=== PATIENT | female | born 1970 | race Asian ===

== ENCOUNTER 2024-09-24 09:14 | Outpatient (AMB) | payer OTHER, SELFPAY ==
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
--- OUTSIDE RECORDS SUMMARY | 2024-09-24 09:19 | XMS_ITS | Data Portability ---
Author Organization [facility] [employer] (acquired by [employer]), Fancy Address [address] [place] [address] [place] [address] Care Team Providers Care Store Director Name Role Phone ZEV RODRIGUEZ Referring Provider Unavailable ZEV RODRIGUEZ Primary Care Provider Assessment Encounter Date Assessment Date Assessment LastModified by Organization Details LastModified Time 08/14/2020 08/14/2020 IMPRESSION: Migraine, with a tendency for perimenstrual predominance and a tendency for extended continuous migraine after stress such as occurred June 2018 after exhausting international business trip. Neurological exam is normal. Headache correlates with screening time. We discuss being more strict with intermixing relaxation away from the screen with screening time versus improving migraine preventative medication. She would love to do the former but does not see how it can be feasible with her job constraints as they are. We decide on the latter. Amitriptyline is not causing side effects and we decide on a slow increase. Medications are reviewed: Atorvastatin 40 mg daily, aspirin 81 mg daily, pantoprazole 40 mg daily, amitriptyline 25 mg nightly, magnesium, riboflavin. She has not yet brought in magnesium and riboflavin doses but will at follow-up PLAN: Angelia Loco August 14, 2020 Migraine prevention: Increase Amitriptyline 25 mg tablets according to these instructions: 1.5 tablets every evening, 2 weeks 2 tablets every evening 2 weeks We agree that I will take over management of this medication. Amitriptyline may cause drowsiness, bladder hesitation, and dry mouth, and increased appetite. If side effects are mild, wait a few days. If side effects are not mild, or if they do not go away after a few days, return to the previous dose at which you did not have side effects. (If you have dry mouth: Try sugarless candy for dry mouth. Alternatively, Biotene, once every morning, mcer-ocv-qumayqk liquid may also help dry mouth) If symptoms resolve at a particular dose, there is no need to increase the dose further. CONTINUE riboflavin CONTINUE magnesium Follow-up in 2 months. Please have your riboflavin and magnesium bottles available at follow-up so I can know you re exact doses. raji Not available 08/14/2020 09:23:59 Plan of Treatment Reminders Order Date Submit Date Provider Last Modified By Organization Details Last Modified Time Details Appointments None recorded. Lab None recorded. Referral None recorded. Procedures None recorded. Surgeries None recorded. Imaging None recorded. Medication Orders amitriptyli ne 25 mg tablet 2020 021 [facility][id number], [address] [facility], [place], [address], 09:25:20 Patient TargetsNo targets recorded. Patient InstructionsNo instructions recorded. Reason for Referral None Reported. Medical Equipment None Reported. Medications Name Sig Start Date Stop Date Status Note LastModified by Organization Details LastModified Time atorvastatin 40 mg tablet TAKE 1 TABLET BY MOUTH EVERY DAY active Not Available Not Available No t Available fluconazole 150 mg tablet TAKE 1 TABLET BY MOUTH ONE DOSE active Not Available Not Available No t Available diphenoxylate- atropine 2.5 mg-0.025 mg tablet TAKE 2 TABLETS 4 TIMES A DAY BY ORAL ROUTE. active Not Available Not Available No t Available metronidazole 500 mg tablet TAKE 1 TABLET EVERY 8 HOURS BY ORAL ROUTE FOR 10 DAYS. active Not Available Not Available No t Available ciprofloxacin 500 mg tablet TAKE 1 TABLET EVERY 12 HOURS BY ORAL ROUTE FOR 10 DAYS. active Not Available Not Available No t Available ondansetron 8 mg disintegrating tablet DISSOLVE 1 TABLET UNDER THE TONGUE EVERY 8 HOURS NEEDED active Not Available Not Available No t Available amitriptyline 25 mg tablet 1.5 tabs nightly, 2 weeks, 2 tabs nightly after active Not Available Not Available No t Available pantoprazole 40 mg tablet,delayed release TAKE 1 TABLET BY MOUTH EVERY DAY active Not Available Not Available No t Available clotrimazole-b etamethasone 1 %-0.05 % topical cream APPLY TO AFFECTED AREA TWICE A DAY active Not Available Not Available No t Available Vitals None Recorded Social History None recorded. Functional Status None recorded. Mental Status None recorded. Family History Nothing Reported. Medical History No medical history recorded. Gynecological HistoryNo gynecological history recorded. Obstetrics History GPAL:G 0 P 0 0 0 0 Past Encounters Encounter ID Performer Location Encounter Start Date Encounter Closed Date Diagnosis/Indication Diagnosis SNOMED-CT Code Diagnosis ICD10 Code Diagnosis Note [id number] Aaron Padgett MD [facility] [address] [place] [address] [place] [address] 08/14/2020 08:44:08 08/14/2020 09:34:07 Migraine without aura [id number] G43.009 Health Concerns Section Related Observation LastModified by Organization Detai ls LastModified Time None Recorded Concern Status LastModified by Organization Details LastModified Time None Recorded Advance Directives Directive None Recorded Payers Insurance Date Sequence Insurance Name Policy Number Policy Montaño Covered Member ID Montaño Member ID Guarantor Name 10/31/2020 1 [employer] [id number] 1 Angelia Loco [id number] Angelia Loco Notes Date Note Type Note Provider Name and Address Organization Details Recorded Time 08/14/2020 text/html Follow-up of headache. 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 She is unaccompanied. After May 15, 2020 initial neurology consultation, on amitriptyline 25 mg nightly, riboflavin and magnesium, daily headaches 3/10 intensity continue to improve so that by the end of May and through June she was having 3/10 intensity headache only once every other week for about 45 hours going away spontaneously. These have worsened recently. Last week she had daily headache starting during work and lasting until bedtime, 5-6/10 intensity. This correlates with her work habits. She cannot travel so she spends all her work time on the computer. In May and June she was giving herself a break every hour. Workup so busy toward the end of July that she has not been able to do so. Presenting symptomatology is reviewed from initial neurology consultation May 15, 2020: In her early adulthood, she had only minor headaches, 2-3/10 at throbbing events with light sensitivity lasting one or 2 days, often around menses. After the of her son, these continued but in addition she began having 7-8/10 migraine level headaches about once a year, lasting 7-10 days, on the left 90% of the time, right 10% of the time. With this unilaterality, the contralateral side has pain although much less. Episodes were possibly around menses but she does not remember for sure. She would struggle through work but would then go into a dark room and not participate in relaxation activities or any social activities. Over the years, more than 1 migraine preventative medication trial occurred but she had side effects each time and discontinued. She does not remember the names of any of these medications. The multi-day severe headaches would resolve spontaneously. 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 She came back mentally and physically exhausted and shortly afterwards developed a 10/10 headache so severe that she was hospitalized. She was discharged on amitriptyline 25 mg and also started riboflavin and magnesium around that time, dose uncertain. The headache gradually subsided, with only intermittent one-2 day throbbing minor headaches and by summer 2018 even these seemed gone. She had about 2 such minor headaches in the next year or so. She had no side effects to it any of these 3 medications. In late summer/2019, she slowly tapered amitriptyline 25 mg nightly medication and eventually stopped. She also stopped riboflavin and magnesium. She thought that with having lost weight and with having started an exercise routine, maybe her headaches were gone for good. Around the beginning of the fourth week of March, she began getting a headache which gradually increased up to 7-8/10 intensity with throbbing pain and photophobia, again 90% left, 10% right. This persisted as a daily continuous headache. ~April 18, 2019 she had encounter with PCP after which she restarted amitriptyline 25 mg nightly as well as riboflavin and magnesium. Since then, headache has persisted daily and continuously but has slowly reduced in intensity, currently about 3/10. She knows of no trigger for the onset of headache in late March 2020. She has no memory of any injuries to the left side of her neck or left shoulder in the distant past to explain left-sided predominance of headaches. Aaron Padgett MD [address] [place] [address] [place], [address], [facility] 08/14/2020 09:26:49 OBGyn Episode No OBEpisode recorded.
--- OUTSIDE RECORDS SUMMARY | 2024-09-24 09:19 | XMS_ITS | Encounter Summary ---
Author Organization [facility] Address [address] [address] Phone Care Team Providers Care Child And Youth Program Assistant Name Role Phone Patricia Caldwell RECRUITING AND SELECTION CONSULTANT Unavailable Sarah Gilliland CNM Unavailable Ashley Mijares CNM Unavailable [phone] Niurka Franks RECRUITING AND SELECTION CONSULTANT Unavailable [phone] Sharon Wagner RECRUITING AND SELECTION CONSULTANT Unavailable Hi Conde MD Unavailable Sydney Tai MD Unavailable Emma Richardson MD Unavailable [phone] Tay Parker MD Unavailable Ciaran Larios MD Unavailable Catrachito Quiñones MD Unavailable Mely Carlisle MD Unavailable Catrachito Disla MD Unavailable Catrachito Quiñones MD Primary Care Provider [phone] Encounter Details Date Type Department Care Team (Latest Contact Info) Description 04/28/2018 Ancillary Orders Virtual Department [address] [place] [address] Catrachito Quiñones MD [address] [place] [address] [email or web address] Nonintractable headache, unspecified chronicity pattern, unspecified headache type Social History Tobacco Use Types Packs/Day Years Used Date Smoking Tobacco: Never Assessed Comments Unknown Sex and Gender Information Value Date Recorded Sex Assigned at Not on file Legal Sex Female 9:34 PM EDT Gender Identity Not on file Sexual Orientation Not on file documented as of this encounter Plan of Treatment Not on file documented as of this encounter Visit Diagnoses Diagnosis Nonintractable headache, unspecified chronicity pattern, unspecified headache type documented in this encounter Care Teams Child And Youth Program Assistant Relationship Specialty Start Date End Date Catrachito Quiñones MD [address] [place] [address] PCP - General 03/13/17 Patricia Caldwell NP [address] [place] [address] Historical LMR Provider 12/29/16 2 Sarah Gilliland CNM [address] [place] [address] Historical LMR Provider 12/29/16 2 Ashley Mijares CNM [address] [place] [address] Historical LMR Provider 12/29/16 03/17/21 Niurka Franks, RECRUITING AND SELECTION CONSULTANT [address] [place] [address] Historical LMR Provider 12/29/16 03/17/21 Sharon Wagner RECRUITING AND SELECTION CONSULTANT [address] [place] [phone] Historical LMR Provider 12/29/16 2 Hi Conde MD [address] [place] [address], [address] [place] [address] Historical LMR Provider 12/29/16 03/17/21 Sydney Tai MD [address] [place] [address] Historical LMR Provider 12/29/16 03/17/21 Emma Richardson MD [address] [place] [address] Historical LMR Provider 12/29/16 2 Tay Parker MD [address] [place] [address] Historical LMR Provider 12/29/16 Ciaran Larios MD [address] [place] [phone] Historical LMR Provider 12/29/16 2 Catrachito Quiñones MD [address] [place] [address] Historical LMR Provider 12/29/16 Mely Carlisle MD [address] [place] [address] Orthopedics & Sports Medicine, [facility] [place] [address] Historical LMR Provider 12/29/16 Catrachito Disla MD [address] [place] [address] Orthopedics & Sports Medicine, [facility] [place] [address] [email or web address] Historical LMR Provider 12/29/16 2 documented as of this encounter Additional Source Comments The information contained in this document represents components of the legal health record. It is not the complete legal health record.[facility]
== END 2024-09-24 11:00 | disposition home or self-care (01) ==
LOC: HO.HNS 09:14
PROVIDERS: PCP Internal Medicine; Visit Provider Neurological Surgery
DX: M46.1 Sacroiliitis, not elsewhere classified (principal)
CPT/HCPCS: 99204

== ENCOUNTER 2024-11-04 15:11 | Outpatient (REF) | payer OTHER, SELFPAY ==
--- OUTSIDE RECORDS SUMMARY | 2024-11-04 15:49 | XMS_ITS | Encounter Summary ---
Author Organization [facility] Address [address] [facility] [address] [place] [address] Phone Care Team Providers Care Cloth Hand Name Role Phone Patricia Caldwell PSYCHIATRIC SOCIAL WORKER SUPERVISOR Unavailable Sarah Gilliland CNM Unavailable Ashley Mijares CNM Unavailable [phone] Niurka Franks PSYCHIATRIC SOCIAL WORKER SUPERVISOR Unavailable [phone] Sharon Wagner PSYCHIATRIC SOCIAL WORKER SUPERVISOR Unavailable Hi Conde MD Unavailable Sydney Tai MD Unavailable Emma Richardson MD Unavailable [phone] Tay Parker MD Unavailable Ciaran Larios MD Unavailable Catrachito Quiñones MD Unavailable Mely Carlisle MD Unavailable Catrachito Disla MD Unavailable Catrachito Quiñones MD Primary Care Provider [phone] Encounter Details Date Type Department Care Team (Late st Contact Info) Description 09/21/2019 Transcribe Orders [facility] [address] [place] [address] Catrachito Quiñones MD [address] [place] [address] Social History Tobacco Use Types Packs/Day Years Used Date Smoking Tobacco: Never Smokeless Tobacco: Never Alcohol Use Standard Drinks/Week Comments Yes 0 (1 standard drink = 0.6 oz pur e alcohol) occasionally Comments No Sex and Gender Information Value Date Recorded Sex Assigned at Not on file Legal Sex Female 9:34 PM EDT Gender Identity Not on file Sexual Orientation Not on file documented as of this encounter Plan of Treatment Not on file documented as of this encounter Visit Diagnoses Not on filedocumented in this encounter Care Teams Cloth Hand Relationship Specialty Start Date End Date Catrachito Quiñones MD [address] [place] [address] PCP - General 03/13/17 Patricia Caldwell NP [address] [place] [address] Historical LMR Provider 12/29/16 2 Sarah Gilliland CNM [address] [place] [address] Historical LMR Provider 12/29/16 2 Ashley Mijares CNM [address] [place] [address] Historical LMR Provider 12/29/16 03/17/21 Niurka Franks PSYCHIATRIC SOCIAL WORKER SUPERVISOR [address] [place] [address] Historical LMR Provider 12/29/16 03/17/21 Sharon Wagner PSYCHIATRIC SOCIAL WORKER SUPERVISOR [address] [place] [phone] Historical LMR Provider 12/29/16 2 Hi Conde MD [address] [place] [address], [address] [place] [address] Historical LMR Provider 12/29/16 03/17/21 Sydney Tai MD [address] [place] [address] Historical LMR Provider 12/29/16 03/17/21 Emma Richardson MD [address] [place] [address] Historical LMR Provider 12/29/16 2 Tay Praker MD [address] [place] [address] Historical LMR Provider 12/29/16 Ciaran Larios MD [address] [place] [phone] Historical LMR Provider 12/29/16 2 Catrachito Quiñones MD [address] [place] [address] Historical LMR Provider 12/29/16 Mely Carlisle MD [address] [place] [address] Orthopedics & Sports Medicine, [facility] [place] [address] Historical LMR Provider 12/29/16 Catrachito Disla MD [address] [place] [address] Orthopedics & Sports Medicine, [facility] [place] [address] [email or web address] Historical LMR Provider 12/29/16 2 documented as of this encounter Additional Source Comments The information contained in this document represents components of the legal health record. It is not the complete legal health record.[facility]
--- OUTSIDE RECORDS SUMMARY | 2024-11-04 15:49 | XMS_ITS | Encounter Summary ---
Author Organization [facility] Address [address] [facility] [address] [place] [address] Phone Care Team Providers Care Housing Project Manager Name Role Phone Tay Parker MD Unavailable [phone] Catrachito Quiñones MD Unavailable [phone] Catrachito Quiñones MD Primary Care Provider [phone] Encounter Details Date Type Department Care Team (Late st Contact Info) Description 10/22/2022 Procedure Pass Echo [facility] [place] [address] Social History Tobacco Use Types Packs/Day Years Used Date Smoking Tobacco: Never Smokeless Tobacco: Never Alcohol Use Standard Drinks/Week Comments Yes 0 (1 standard drink = 0.6 oz pur e alcohol) occasionally Education Answer Date Recorded Are you interested in more education? Not on rhona e 07/05/2022 Are you concerned about learning? Not on file 07/05/2022 No 07/05/2022 No 07/05/2022 Digital Access Answer Date Recorded No 08/01/2022 No 08/01/2022 Reliable internet access at home? Not on file 08/01/2022 Device with a working camera? Not on file Comments No Sex and Gender Information Value Date Recorded Sex Assigned at Not on file Legal Sex Female 9:34 PM EDT Gender Identity Not on file Sexual Orientation Not on file Occupation Industry Job Start Date Job End Date teacher Not on file Not on file Not on file documented as of this encounter Plan of Treatment Not on file documented as of this encounter Visit Diagnoses Not on filedocumented in this encounter Care Teams Housing Project Manager Relationship Specialty Start Date End Date Catrachito Quiñones MD [address] [place] [address] [email or web address] PCP - General 03/13/17 Tay Parker MD [address] [place] [address], [facility] [address] [place] [address] [email or web address] Historical LMR Provider 12/29/16 Catrachito Quiñones MD [address] [place] [address] [email or web address] Historical LMR Provider 12/29/16 documented as of this encounter Additional Source Comments The information contained in this document represents components of the legal health record. It is not the complete legal health record.[facility]
--- OUTSIDE RECORDS SUMMARY | 2024-11-04 15:49 | XMS_ITS | Encounter Summary ---
Author Organization [facility] Address [address] [facility] [address] [place] [address] Phone Care Team Providers Care Kennel Helper Name Role Phone Patricia Caldwell SUPERVISOR LIVESTOCK YARD Unavailable Sarah Gilliland CNM Unavailable Ashley Mijares CNM Unavailable [phone] Niurka Franks SUPERVISOR LIVESTOCK YARD Unavailable Sharon Wagner SUPERVISOR LIVESTOCK YARD Unavailable Hi Conde MD Unavailable Sydney Tai MD Unavailable Emma Richardson MD Unavailable [phone] Tay Parker MD Unavailable Ciaran Larios MD Unavailable Catrachito Quiñones MD Unavailable Mely Carlisle MD Unavailable Catrachito Disla MD Unavailable Catrachito Quiñones MD Primary Care Provider [phone] Encounter Details Date Type Department Care Team (Late st Contact Info) Description 05/14/2019 Ancillary Orders [facility],Outside Imaging [address] [place] [address] System, Provider Not In, PhD Partners [address] [address] Social History Tobacco Use Types Packs/Day Years Used Date Smoking Tobacco: Never Smokeless Tobacco: Never Alcohol Use Standard Drinks/Week Comments Yes 0 (1 standard drink = 0.6 oz pur e alcohol) occasionally Comments Unknown Sex and Gender Information Value Date Recorded Sex Assigned at Not on file Legal Sex Female 9:34 PM EDT Gender Identity Not on file Sexual Orientation Not on file documented as of this encounter Plan of Treatment Not on file documented as of this encounter Results * Mammogram Outside (No Interpretation) (05/07/2019 12:00 AM EST) Narrative SYSTEMGENERATED, DOCUMENTATION - 05/14/2019 8:25 AM EST This study is for PACS storage only and not for interpretation. us Provider Not In System PhD IMG OUTSIDE IMAGING W /OUT INTERPRETATION Final Result * US Breast Outside (No Interpretation) (08/15/2017 12:05 AM EDT) Narrative SYSTEMGENERATED, DOCUMENTATION - 05/14/2019 8:25 AM EST This study is for PACS storage only and not for interpretation. us Provider Not In System PhD IMG OUTSIDE IMAGING W /OUT INTERPRETATION Final Result * Mammogram Outside (No Interpretation) (08/15/2017 12:00 AM EDT) Narrative SYSTEMGENERATED, DOCUMENTATION - 05/14/2019 8:23 AM EST This study is for PACS storage only and not for interpretation. us Provider Not In System PhD IMG OUTSIDE IMAGING W /OUT INTERPRETATION Final Result * Mammogram Outside (No Interpretation) (08/12/2014 12:00 AM EDT) Narrative SYSTEMGENERATED, DOCUMENTATION - 05/14/2019 8:24 AM EST This study is for PACS storage only and not for interpretation. us Provider Not In System PhD IMG OUTSIDE IMAGING W /OUT INTERPRETATION Final Result * Mammogram Outside (No Interpretation) (08/08/2014 12:00 AM EDT) Narrative SYSTEMGENERATED, DOCUMENTATION - 05/14/2019 8:24 AM EST This study is for PACS storage only and not for interpretation. us Provider Not In System PhD IMG OUTSIDE IMAGING W /OUT INTERPRETATION Final Result documented in this encounter Visit Diagnoses Not on filedocumented in this encounter Care Teams Kennel Helper Relationship Specialty Start Date End Date Catrachito Quiñones MD [address] [place] [address] PCP - General 03/13/17 Patricia Caldwell, SUPERVISOR LIVESTOCK YARD [address] [place] [address] Historical LMR Provider 12/29/16 2 Sarah Gilliland CNM [address] [place] [address] Historical LMR Provider 12/29/16 2 Ashley Mijares CNM [address] [place] [address] Historical LMR Provider 12/29/16 03/17/21 Niurka Franks, SUPERVISOR LIVESTOCK YARD [address] [place] [address] Historical LMR Provider 12/29/16 03/17/21 Sharon Wagner, SUPERVISOR LIVESTOCK YARD [address] [place] [address] [place] [address] Historical LMR Provider 12/29/16 2 Hi Conde MD [address] [place] [address], [address] [place] [address] Historical LMR Provider 12/29/16 03/17/21 Sydney Tai MD [address] [place] [address] Historical LMR Provider 12/29/16 03/17/21 Emma Richardson MD [address], [place] [address] Historical LMR Provider 12/29/16 2 Tay Parker MD [address] [place] [address] Historical LMR Provider 12/29/16 Ciaran Larios MD [address] [place] [address] Historical LMR Provider 12/29/16 2 Catrachito Quiñones MD [address] [place] [address] Historical LMR Provider 12/29/16 Mely Carlisle MD [address] [place] [address] [facility], [place] [address] Historical LMR Provider 12/29/16 Catrachito Disla MD [address] [place] [address] [facility], [place] [address] Historical LMR Provider 12/29/16 2 documented as of this encounter Additional Source Comments The information contained in this document represents components of the legal health record. It is not the complete legal health record.[facility]
--- OUTSIDE RECORDS SUMMARY | 2024-11-04 15:49 | XMS_ITS | Encounter Summary ---
Author Organization [facility] Address [address] [address] Phone Care Team Providers Care Billing Coordinator Name Role Phone Patricia Caldwell SUPERVISOR COMPUTER OPERATIONS Unavailable Sarah Gilliland CNM Unavailable Ashley Mijares CNM Unavailable [phone] Niurka Franks SUPERVISOR COMPUTER OPERATIONS Unavailable [phone] Sharon Wagner SUPERVISOR COMPUTER OPERATIONS Unavailable Hi Conde MD Unavailable Sydney Tai MD Unavailable Emma Richardson MD Unavailable [phone] Tay Parker MD Unavailable Ciaran Larios MD Unavailable Catrachito Quiñones MD Unavailable Mely Carlisle MD Unavailable Catrachito Disla MD Unavailable [phone] Catrachito Quiñones MD Primary Care Provider [phone] Reason for Referral * Physical Therapy (Routine) - Closed Specialty Diagnoses / Procedures Referred By Tisha t Referred To Contact Physical Therapy Diagnoses Encounter for rehabilitation Tenzin Martins MD Phone: tel: fax: [email or web address] [address] [address] Phone: tel: Referral ID Status Reason Start Date Expiration Date Visits Re quested Visits Authorized [id number] Closed 05/04/2019 03/09/2020 25 25 Encounter Details Date Type Department Care Team (Latest Contact Info) Description 05/04/2019 Transcribe Orders [facility] [address] [place] [address] Tenzin Martins MD [address] [place] [address] [email or web address] Encounter for rehabilitation (Primary Dx) Social History Tobacco Use Types Packs/Day Years [...] on file documented as of this encounter Procedures Procedure Name Priority Date/Time Associated Diagnosis Comments AMB REFERRAL TO [facility] PHYSICAL THERAPY Routine 05/20/2019 1:06 PM EDT Encounter for rehabilitation documented in this encounter Results * Ambulatory referral to [facility] Physical Therapy (05/20/2019 1:06 PM EDT) us Tenzin Martins MD AMB [facility] REFERRALS Final Resu lt documented in this encounter Visit Diagnoses Diagnosis Encounter for rehabilitation- Primary documented in this encounter Care Teams Billing Coordinator Relationship Specialty Start Date End Date Catrachito Quiñones MD [address] [place] [address] PCP - General 03/13/17 Patricia Caldwell NP [address] [place] [address] Historical LMR Provider 12/29/16 2 Sarah Gilliland CNM [address] [place] [address] Historical LMR Provider 12/29/16 2 Ashley Mijares CNM [address] [place] [address] Historical LMR Provider 12/29/16 03/17/21 Niurka Franks SUPERVISOR COMPUTER OPERATIONS [address] [place] [address] Historical LMR Provider 12/29/16 03/17/21 Sharon Wagner SUPERVISOR COMPUTER OPERATIONS [address] [place] [address] Historical LMR Provider 12/29/16 2 Hi Conde MD [address] [place] [address], [address] [place] [address] Historical LMR Provider 12/29/16 03/17/21 Sydney Tai MD [address] [place] [address] Historical LMR Provider 12/29/16 03/17/21 Emma Richardson MD [address] [place] [address] Historical LMR Provider 12/29/16 2 Tay Parker MD [address] [place] [address] Historical LMR Provider 12/29/16 Ciaran Larios MD [address] [place] [address] Historical LMR Provider 12/29/16 2 Catrachito Quiñones MD [address] [place] [address] Historical LMR Provider 12/29/16 Mely Carlisle MD [address] [place] [address] [facility], [place] [address] Historical LMR Provider 12/29/16 Catrachito Disla MD [address] [place] [address] Orthopedics Sports [facility], [place] [address] Historical LMR Provider 12/29/16 2 documented as of this encounter Additional Source Comments The information contained in this document represents components of the legal health record. It is not the complete legal health record.[facility]
--- OUTSIDE RECORDS SUMMARY | 2024-11-04 15:49 | XMS_ITS | Encounter Summary ---
Author Organization [facility] Address [address] [address] Phone Care Team Providers Care Disability Specialist Name Role Phone Patricia Caldwell AERIAL PHOTOGRAMMETRIST Unavailable Sarah Gilliland CNM Unavailable Ashley Mijares CNM Unavailable [phone] Niurka Franks AERIAL PHOTOGRAMMETRIST Unavailable [phone] Sharon Wagner AERIAL PHOTOGRAMMETRIST Unavailable Hi Conde MD Unavailable Sydney Tai MD Unavailable Emma Richardson MD Unavailable [phone] Tay Parker MD Unavailable Ciaran Larios MD Unavailable Catrachito Quiñones MD Unavailable Mely Carlisle MD Unavailable Catrachito Disla MD Unavailable Catrachito Quiñones MD Primary Care Provider [phone] Encounter Details Date Type Department Care Team (Latest Contact Info) Description 04/28/2018 Ancillary Orders Virtual Department [address] [place] [address] Catrachito Quiñones MD [address] [place] [address] [email or web address] Nonintractable headache, unspecified chronicity pattern, [...] type documented in this encounter Care Teams Disability Specialist Relationship Specialty Start Date End Date Catrachito Quiñones MD [address] [place] [address] PCP - General 03/13/17 Patricia Caldwell NP [address] [place] [address] Historical LMR Provider 12/29/16 2 Sarah Gilliland CNM [address] [place] [address] Historical LMR Provider 12/29/16 2 Ashley Mijares CNM [address] [place] [address] Historical LMR Provider 12/29/16 03/17/21 Niurka Franks, AERIAL PHOTOGRAMMETRIST [address] [place] [address] Historical LMR Provider 12/29/16 03/17/21 Sharon Wagner AERIAL PHOTOGRAMMETRIST [address] [place] [address] Historical LMR Provider 12/29/16 2 Hi Conde MD [address] [place] [address], [address] [place] [address] Historical LMR Provider 12/29/16 03/17/21 Sydney Tai MD [address] [place] [address] Historical LMR Provider 12/29/16 03/17/21 Emma Richardson MD [address] [place] [address] Historical LMR Provider 12/29/16 2 Tay Parker MD [address] [place] [address] Historical LMR Provider 12/29/16 Ciaran Larios MD [address] [place] [phone] Historical LMR Provider 12/29/16 2 Catrachito Quiñones MD [address] [place] [address] Historical LMR Provider 12/29/16 Mely Carlisle MD [address] [place] [address] [facility], [facility] [place] [address] Historical LMR Provider 12/29/16 Catrachito Disla MD [address] [place] [address] [facility], [facility] [place] [address] [email or web address] Historical LMR Provider 12/29/16 2 documented as of this encounter Additional Source Comments The information contained in this document represents components of the legal health record. It is not the complete legal health record.[facility]
--- OUTSIDE RECORDS SUMMARY | 2024-11-04 15:49 | XMS_ITS | Clinical Summary ---
Author Organization [facility] Address [address] [facility] [address] [place] [address] Phone Care Team Providers Care Alterations Manager Name Role Phone Tay Parker MD Unavailable [phone] Catrachito Quiñones MD Unavailable [phone] Catrachito Quiñones MD Primary Care Provider [phone] Allergies Active Allergy Reactions Criticality Noted Date Comments Almotriptan Malate 10/22/2022 Latex 10/22/2022 Penicillins Unknown 01/26/2019 Strong family history of reaction to medication Medications cetirizine HCl (ZYRTEC ORAL) Active atorvastatin (LIPITOR) 40 MG tablet Take 40 mg by mouth daily. Active clotrimazole-betam ethasone (LOTRISONE) creamIndications:A cute vulvitis Apply to affected area 2 times daily 30 g 1 02/18/20 20 Active Additional Information Patient not taking.Reported on 06/26/2023 ondansetron (ZOFRAN-ODT) 8 MG disintegrating tablet ondansetron 8 mg disintegrating tablet DISSOLVE 1 TABLET UNDER THE TONGUE EVERY 8 HOURS NEEDED Active amitriptyline (ELAVIL) 25 MG tablet TAKE 2 TABLETS BY MOUTH EVERYDAY AT BEDTIME 12/01/19 23 Active CLIMARA PRO 0.045-0.015 mg/24 hr APPLY 1 PATCH TO SKIN ONE TIME PER WEEK 06/02/19 24 Active Active Problems Problem Noted Date Diagnosed Date Benign essential hypertension 12/24/2022 Other chest pain 10/22/2022 Assessment & Plan (10/22/2022 11:41 AM EDT): 52-year-old lady with complaints of chest pain which do not seem like angina pectoris. Her pain is very atypical and most likely noncardiac. Her ETT is negative. She also had a myocardial perfusion stress test. It did not show any evidence of ischemia or infarction. So at this point the index of suspicion for coronary artery disease is low. We will do an echocardiogram just to make sure that she does not have any other structural heart disease or valvular heart disease. She agreed to that. Obesity (BMI 35.0-39.9 without comorbidity) 10/08 Elevated BP without diagnosis of hypertension Mixed hyperlipidemia 10/22/2022 Migraine without aura and responsive to treatmen t 02/18/2020 Osteoarthritis of knee 02/18/2020 Immunizations Immunization Administration Dates Next Due Hepatitis A, Unspecified 04/13/2001 Hepatitis B, unspecified formulation 10/12/2001, 05/13/2001,04/13/2001 INFLUENZA, SPLIT VIRUS, TRIV ALENT W/ PRESERVATIVE IM 02/27/2010,02/14/2009 Influenza Quadrivalent Preservative Free IM 01/08 Td (adult) 5 Lf Tetanus Toxo id, PF, Adsorbed 05/18/2009 Family History Medical History Relation Comments Diabetes Brother 2 Liver disease Brother 2 Cancer Father Diabetes mellitus Father Hypertension Father Breast cancer Maternal Aunt Cancer Maternal Grandfather Parkinson's disease Mother Cancer Paternal Uncle Relation Status Comments Brother 1 Alive Brother 2 Father Maternal Aunt Maternal Grandfather Mother Alive Paternal Uncle Sister 1 Alive Sister 2 Alive Sister 3 Alive Sister 4 Alive Social History Tobacco Use Types Packs/Day Years Used Date Smoking Tobacco: Never Smokeless Tobacco: Never Tobacco Cessation:Counseling Given: Not Answered Alcohol Use Standard Drinks/Week Comments Yes 0 [...] file Not on file Not on file Last Filed Vital Signs Vital Sign [place] Time Taken Comments Blood Pressure 126/72 06/26/2023 9:17 AM EDT Pulse 89 06/26/2023 9:17 AM EDT Temperature - - Respiratory Rate - - Oxygen Saturation 98% 06/26/2023 9:17 AM EDT Inhaled Oxygen Concentration - - Weight 100.7 kg (222 lb) 06/26/2023 9:17 AM EDT Height 165.1 cm (5' 5 ) 06/26/2023 9:17 AM EDT Body Mass Index 36.94 06/26/2023 9:17 AM EDT Plan of Treatment Health Maintenance Due Date Last Done Comments LIPID PANEL 1970 DEPRESSION SCREENING 1982 HEPATITIS C SCREENING 1988 HIV ONE-TIME SCREENING (18-65 YEARS) 1988 COLOGUARD 08/14/2015 COLONOSCOPY 08/14/2015 COLORECTAL CANCER SCREENING 08/14/2015 FIT TEST 08/14/2015 FOBT 08/14/2015 SIGMOIDOSCOPY 08/14/2015 VIRTUAL COLONOSCOPY 08/14/2015 Adult Td,Tdap Booster 05/19/2019 05/18/2009 PNEUMOCOCCAL VACCINES (50+ years) (1 of 1 - PCV) 2020 ZOSTER VACCINES (1 of 2) 2020 PAP SMEAR 11/18/2020 11/18/2017 MAMMOGRAM 05/07/2021 05/07/2019, 06/0 10/2017, 08/12/2014, Additional history exists SCREENING FOR DIABETES 02/17/2023 02/18/2020 COVID-19 VACCINE ( season) 2023 05/10/2020 BLOOD PRESSURE 12/26/2023 06/26/2023 INFLUENZA VACCINE (#1) 2024 9, 02/27/2010, 02/14/2009 HEPATITIS A VACCINES Aged Out 04/13/2001 No long er eligible based on patient's age to complete this topic SMOKING STATUS SCREENING (Once After 26 Yrs) Completed 06/26/2023 HIB VACCINES Aged Out No longer eligi ble based on patient's age to complete this topic MENINGOCOCCAL VACCINES (ACWY) Aged Out No longer eligible based on patient's age to complete this topic MENINGOCOCCAL VACCINES (B) Aged Out N o longer eligible based on patient's age to complete this topic Medical Devices Not on file Procedures Procedure Name Priority Date/Time Associated Diagnosis Comments BI MAMMOGRAM OUTSIDE (NO INTERPRETATION) Routine 05/07/2019 12:00 AM EST PAP TEST Routine 11/18/2017 12:00 AM EDT from Last 3 Months or Most Recently Relevant to Health Maintenance Results * Mammogram Outside (No Interpretation) (05/07/2019 12:00 AM EST) Narrative SYSTEMGENERATED, DOCUMENTATION - 05/14/2019 8:25 AM EST This study is for PACS storage only and not for interpretation. Provider Not In System PhD IMG OUTSIDE IMAGING W /OUT INTERPRETATION Final Result * Pap Smear (11/18/2017 12:00 AM EDT) 11/18/2017 11/19/2017 1:2 3 PM EDT Narrative SEE NARRATIVE - 11/25/2017 2:36 PM EDT [address] [address] Animal Control Supervisor: Robina Griffin MD PACKAGE LINE RELIEF OPERATOR Cytology Report FINAL DIAGNOSIS A. PAP SMEAR (SUREPATH) CE: SPECIMEN ADEQUACY: Satisfactory for evaluation; transformation zone present. INTERPRETATION: NEGATIVE FOR INTRAEPITHELIAL LESION OR MALIGNANCY. Electronically Signed Out By: REY Rolon(ASCP) The Pap test is a screening test primarily for squamous cancers and precursors and has associated false-negative and false-positive results. New technologies such as liquid-based preparations may decrease but will not eliminate all false-negative results. Regular sampling and follow-up of unexplained clinical signs and symptoms are recommended to minimize false negative results. CLINICAL HISTORY Date of Last Menstrual Period: 10-15-17 Other Clinical Conditions: Screening Pap SPECIMEN SOURCE A: PAP SMEAR (SUREPATH) CE Patient Name: RAKESH CORDERO : 1970 (Age: 47) Sex: F Institution: [facility] Location: [facility] Date of Collection: 11/18/2017 Date of Reported: 11/25/2017 14:36 Results to: Cristy Kaur PAC us Cristy Kaur PA CYTOLOGY ORDERABLES Final R esult SEE NARRATIVE from Last 3 Months or Most Recently Relevant to Health Maintenance [facility] Member Subscriber Plan / Payer (Ef fective 2017-Present) Name:Rakesh Cordero Relation to Subscriber:Spouse Name:VARUN CORDERO Date of :1900 (Home) Address: [address] [place] [address] Payer ID:Not on file Type:HMO Address: [place] [id number] Care Teams Alterations Manager Relationship Specialty Start Date End Date Catrachito Quiñones MD [address] [place] [address] [email or web address] PCP - General 03/13/17 Tay Parker MD 22 [facility] [address] [place] [address] [email or web address] Historical LMR Provider 12/29/16 Catrachito Quiñones MD [address] [place] [address] [email or web address] Historical LMR Provider 12/29/16 Additional Source Comments The information contained in this document represents components of the legal health record. It is not the complete legal health record.[facility]
--- OUTSIDE RECORDS SUMMARY | 2024-11-04 15:49 | XMS_ITS | Encounter Summary ---
Author Organization [facility] Address [address] [place] [address] Phone Care Team Providers Care Special Education Assistant Name Role Phone Tay Parker MD Unavailable [phone] Catrachito Quiñones MD Unavailable [phone] Catrachito Quiñones MD Primary Care Provider [phone] Encounter Details Date Type Department Care Team (Late st Contact Info) Description 12/09/2023 Ancillary Orders [facility], X-Ray - [address] [place] [address] Regine Bergeron, DO [address] [place] [address] Right hip pain (Primary Dx) Social History Tobacco Use Types [...] documented as of this encounter Results * XR HIP 2 VW RIGHT PLUS PELVIS (12/09/2023 11:54 AM EDT) Anatomical Region Laterality Modality Hip, Pelvis Computed Radiogr aphy 12/09/2023 9:54 PM EDT Impressions 12/09/2023 9:54 PM EDT Mild right hip degenerative changes. Narrative 12/09/2023 9:54 PM EDT XR HIP 2 VW RIGHT PLUS PELVIS Referring clinician's provided indication for this examination in Epic: Pain COMPARISON: None. FINDINGS: Mild right hip degenerative changes. No acute fracture or dislocation. There are also mild left hip degenerative changes. There are degenerative changes of the partially imaged lower lumbar spine and both sacroiliac joints. Procedure Note Aftab Ramirez MD - 12/09/2023 XR HIP 2 VW RIGHT PLUS PELVIS Referring clinician's provided indication for this examination in Epic:Pain COMPARISON: None. FINDINGS: Mild right hip degenerative changes. No acute fracture or dislocation.There are also mild left hip degenerative changes. There are degenerativechanges of the partially imaged lower lumbar spine and both sacroiliacjoints. IMPRESSION: Mild right hip degenerative changes. Regine Bergeron DO IMG XR PELVIS Final R esult documented in this encounter Visit Diagnoses Diagnosis Right hip pain- Primary Pain in joint, pelvic region and thigh Right hip pain Pain in joint, pelvic region and thigh documented in this encounter Care Teams Special Education Assistant Relationship Specialty Start Date End Date Catrachito Quiñones MD [address] [place] [address] PCP - General 03/13/17 Tay Parker MD [address] [place] [address], [address] [place] [address] [email or web address] Historical LMR Provider 12/29/16 Catrachito Quiñones MD [address] [place] [address] [email or web address] Historical LMR Provider 12/29/16 documented as of this encounter Additional Source Comments The information contained in this document represents components of the legal health record. It is not the complete legal health record.[facility]
--- OUTSIDE RECORDS SUMMARY | 2024-11-04 15:49 | XMS_ITS | Encounter Summary ---
Author Organization [facility] Address [address] [facility] [address] [place] [address] Phone Care Team Providers Care Public Health Engineer Name Role Phone Patricia Caldwell PRODUCT SALES REPRESENTATIVE Unavailable Sarah Gilliland CNM Unavailable Ashley Mijares CNM Unavailable [phone] Niurka Franks PRODUCT SALES REPRESENTATIVE Unavailable [phone] Sharon Wagner PRODUCT SALES REPRESENTATIVE Unavailable Hi Conde MD Unavailable Sydney Tai MD Unavailable Emma Richardson MD Unavailable [phone] Tay Parker MD Unavailable Ciaran Larios MD Unavailable Catrachito Quiñones MD Unavailable Mely Carlisle MD Unavailable Catrachito Disla MD Unavailable Catrachito Quiñones MD Primary Care Provider [phone] Reason for Referral * Physical Therapy (Routine) - Closed Specialty Diagnoses / Procedures Referred By Tisha patel Referred To Contact Physical Therapy Diagnoses Encounter for rehabilitation Catrachito Quiñones MD Phone: tel: fax: [email or web address] [facility] [address] [place] [address] Phone: tel: fax: Referral ID Status Reason Start Date Expiration Date Visits Re quested Visits Authorized [id number] Closed 09/23/2017 01/07/2018 13 13 Encounter Details Date Type Department Care Team (Latest Contact Info) Description 09/09/2017 Transcribe Orders [facility] [address] [place] [address] Catrachito Quiñones MD [address] [place] [address] [email or web address] Encounter for rehabilitation (Primary Dx) Social History Tobacco Use Types Packs/Day Years Used Date Smoking Tobacco: Never Assessed Comments Unknown Sex and Gender Information Value Date Recorded Sex Assigned at Not on file Legal Sex Female 9:34 PM EDT Gender Identity Not on file Sexual Orientation Not on file documented as of this encounter Plan of Treatment Scheduled Referrals Name Type Priority Associated Diagnoses Orde r Schedule Ambulatory referral to [facility] Physical Therapy Outpatient Referral Routine Encounter for rehabilitation Ordered: 09/09/2017 documented as of this encounter Visit Diagnoses Diagnosis Encounter for rehabilitation- Primary documented in this encounter Care Teams Public Health Engineer Relationship Specialty Start Date End Date Catrachito Quiñones MD [address] [place] [address] PCP - General 03/13/17 Patricia Caldwell NP [address] [place] [address] Historical LMR Provider 12/29/16 2 Sarah Gilliland CNM [address] [place] [address] Historical LMR Provider 12/29/16 2 Ashley Mijares CNM [address] [place] [email or web address] Historical LMR Provider 12/29/16 03/17/21 Niurka Franks NP [address] [place] [address] [email or web address] Historical LMR Provider 12/29/16 03/17/21 Sharon Wagner NP [address] [place] [phone] Historical LMR Provider 12/29/16 2 Hi Conde MD [address] [place] [address], [address] [place] [address] Historical LMR Provider 12/29/16 03/17/21 Sydney Tai MD [address] [place] [address] Historical LMR Provider 12/29/16 03/17/21 Emma Richardson MD [address] [place] [address] Historical LMR Provider 12/29/16 2 Tay Parker MD [address] [place] [address] Historical LMR Provider 12/29/16 Ciaran Larios MD [address] [place] [address] Historical LMR Provider 12/29/16 2 Catrachito Quiñones MD [address] [place] [address] Historical LMR Provider 12/29/16 Mely Carlisle MD [address] [place] [address] Orthoped[facility], [place] [address] Historical LMR Provider 12/29/16 Catrachito Disla MD [address] [place] [address] [facility] [place] [address] Historical LMR Provider 12/29/16 2 documented as of this encounter Additional Source Comments The information contained in this document represents components of the legal health record. It is not the complete legal health record.[facility]
--- OUTSIDE RECORDS SUMMARY | 2024-11-04 15:49 | XMS_ITS | Encounter Summary ---
Author Organization [facility] Address [address] [facility] [address] [place] [address] Phone Care Team Providers Care Chassis Wirer Name Role Phone Patricia Caldwell FIREFIGHTER TYPE ONE Unavailable Sarah Gilliland CNM Unavailable Ashley Mijares CNM Unavailable [phone] Niurka Franks FIREFIGHTER TYPE ONE Unavailable [phone] Sharon Wagner FIREFIGHTER TYPE ONE Unavailable Hi Conde MD Unavailable Sydney Tai MD Unavailable Emma Richardson MD Unavailable [phone] Tay Parker MD Unavailable Ciaran Larios MD Unavailable Catrachito Quiñones MD Unavailable Mely Carlisle MD Unavailable Catrachito Disla MD Unavailable Catrachito Quiñones MD Primary Care Provider [phone] Encounter Details Date Type Department Care Team (Latest Contact Info) Description 05/31/2019 Transcribe Orders Virtual Department [address] [place] [address] Catrachito Quiñones MD [address] [place] [address] [email or web address] Oth abn and inconclusive findings on dx imaging of breast (Primary Dx) Social History Tobacco Use Types [...] documented as of this encounter Results * BI US BREAST LIMITED (LEFT) (06/01/2019 10:04 AM EDT) Anatomical Region Laterality Modality Breast Left, Breast Bilateral Left Ul trasound 06/01/2019 9:57 AM EDT Narrative 06/01/2019 9:57 AM EDT Refer to the same day diagnostic mammogram report. POS - [id number] Procedure Note Wayne Ackerman MD - 06/01/2019 Refer to the same day diagnostic mammogram report. POS - [id number] Catrachito Quiñones MD [facility] US BREAST Final Resu lt * BI MAMMOGRAM DIAGNOSTIC WITH TOMOSYNTHESIS WITH CAD (LEFT) (06/01/2019 9:19 AM EDT) Anatomical Region Laterality Modality Breast Left, Breast Bilateral Left Ma mmography 06/01/2019 9:28 AM EDT Impressions 06/01/2019 10:00 AM EDT No mammographic evidence of malignancy. Recommend return to routine annual surveillance. Findings relayed to the patient via the technologist. BI-RADS CATEGORY: 2 - Benign finding. DENSITY: There are scattered fibroglandular densities. Return to annual screening. POS - CDHMAMA Narrative 06/01/2019 10:00 AM EDT 48-year-old female who presents for callback mammogram. Comparison made to previous on 05/07/2019 and as far back as 12/04/2012. Interpretation made in conjunction with computer-aided detection and tomosynthesis. Rolled medial left CC view and left ML view The left breast is composed of scattered areas of fibroglandular density. Density changes slightly in shape on the CC view and is not definitively identified on the ML view. The left breast ultrasound was obtained. No abnormality identified. Procedure Note Wayne Ackerman MD - 06/01/2019 48-year-old female who presents for callback mammogram. Comparison madeto previous on 05/07/2019 and as far back as 12/04/2012. Interpretationmade in conjunction with computer-aided detection and tomosynthesis. Rolled medial left CC view and left ML view The left breast is composedof scattered areas of fibroglandular density. Density changes slightly inshape on the CC view and is not definitively identified on the ML view. The left breast ultrasound was obtained. No abnormality identified. IMPRESSION: No mammographic evidence of malignancy. Recommend return to routineannual surveillance. Findings relayed to the patient via thetechnologist. BI-RADS CATEGORY: 2 - Benign finding. DENSITY: There are scattered fibroglandular densities. Return to annual screening. POS - CDHMAMA us Catrachito Quiñones MD IMG MG EXAMS Final Resu lt documented in this encounter Visit Diagnoses Diagnosis Oth abn and inconclusive findings on dx imaging of breast- Primary Oth abn and inconclusive findings on dx imaging of breast Oth abn and inconclusive findings on dx imaging of breast documented in this encounter Care Teams Chassis Wirer Relationship Specialty Start Date End Date Catrachito Quiñones MD [address] [place] [address] PCP - General 03/13/17 Patricia Caldwell NP [address] [place] [address] Historical LMR Provider 12/29/16 2 Sarah Gilliland CNM [address] [place] [address] Historical LMR Provider 12/29/16 2 Ashley Mijares CNM [address] [place] [address] Historical LMR Provider 12/29/16 03/17/21 Niurka Franks FIREFIGHTER TYPE ONE [address] [place] [address] [email or web address] Historical LMR Provider 12/29/16 03/17/21 Shaorn Wagner FIREFIGHTER TYPE ONE [address] [place] [phone] Historical LMR Provider 12/29/16 2 Hi Conde MD [address] [place] [address], [address] [place] [address] Historical LMR Provider 12/29/16 03/17/21 Sydney Tai MD [address] [place] [address] Historical LMR Provider 12/29/16 03/17/21 Emma Richardson MD [address] [place] [address] Historical LMR Provider 12/29/16 2 Tay Parker MD [facility], [address] [place] [address] Historical LMR Provider 12/29/16 Ciaran Larios MD [address] [place] [address] Historical LMR Provider 12/29/16 2 Catrachito Quiñones MD [address] [place] [address] Historical LMR Provider 12/29/16 Mely Carlisle MD [address] [place] [address] [facility], [place] [address] Historical LMR Provider 12/29/16 Catrachito Disla MD [address] [place] [address] Orthopedics & Sports [facility], [place] [address] Historical LMR Provider 12/29/16 2 documented as of this encounter Additional Source Comments The information contained in this document represents components of the legal health record. It is not the complete legal health record.[facility]
== END 2024-11-04 15:12 | disposition home or self-care (01) ==
LOC: HO.HOSX 15:11
PROVIDERS: Visit Provider Physician Assistant
DX: Z13.89 Encounter for screening for other disorder (principal)

== ENCOUNTER 2024-11-10 15:02 | Outpatient (AMB) | payer OTHER, SELFPAY ==
--- NOTE | 2024-11-10 15:06 | HO.SPINEOV ---
Vital Signs 11/10/24 15:07 Height 5 ft 4 in Weight 210 lb BMI 36.0 Intake Visit Reasons: F/u testing for Prior Authorization Intake Note: Ms. Loco is here today for F/u Testing needed for Prior Authorization for her Surgery. Sheet Rocker Required: No Allergies No Known Allergies Allergy (Verified 11/10/24 15:06) Physical Exam Vital Signs: BMI result Body Mass Index 36.0 Assessment & Plan Assessment & Plan (1) Bilateral sacroiliitis: Code(s): M46.1 - Sacroiliitis, not elsewhere classified Category: Medical Plan On 11/09/2024, I saw for follow-up Angelia Loco to confirm that she meets all the criteria of [facility] to undergo a right SI joint fusion for sacroiliitis. The patient and I reviewed the document that she received and the documents that we received for the denial. Fortunately, she has met all the criteria which I will specify below. She is a nonsmoker. She rates her pain as a 9/10. There are no other pain disorders. The pain is located over the sacral sulcus caudal to the lumbar spine and is nonradiating. She had multiple physical therapy sessions in the past without success. She underwent another round of physical therapy followed by chiropractic therapy this year.. The sessions were total of at least 4 months. She discontinued the chiropractic therapy after 12 sessions as it was approved for 12 sessions but more importantly it did not improve her symptoms. Physical therapy provided her with active therapeutic exercises targeted at the lumbar spine pelvis sacroiliac joint and hip, including a home exercise program that provided no relief. She also had activity modification and bracing. Physical exam reviews positive response to long ligament test, EUGENE test, active straight leg raise , compression test and thigh thrust test. An x-ray of the pelvis of 12/09/2023 showed degenerative changes in both SI joints and mild degeneration of the bilateral hips. A right SI joint injection provided 80% relief for 2 months. She is scheduled to undergo a 2nd injection this Friday and will report to me about the success rate , which I will report as an addendum before we submit for approval again. In summary, this patient is suffering from active sacroiliitis with severe pain in the SI joint region. She fulfilled all criteria and I hope for the patient that the surgery will be approved. I spent 30 minutes in his consult to go over the insurance paperwork and to address the criteria. Selwyn Parikh MD, PhD Spine Fellowship Trained Neurosurgeon Director, [facility] Coding Level of Care Code Est Pt Level 4 (12907) Diagnoses Bilateral sacroiliitis M46.1
[2024-11-10 15:07] VITALS: BMI 36.0
--- OUTSIDE RECORDS SUMMARY | 2024-11-10 17:11 | XMS_ITS | Encounter Summary ---
Author Organization [facility] Address [address] [facility] [address] [place] [address] Phone Care Team Providers Care Presser Cotton Ginning Name Role Phone Tay Parker MD Unavailable [phone] Catrachito Quiñones MD Unavailable [phone] Catrachito Quiñones MD Primary Care Provider [phone] Encounter Details Date Type Department Care Team (Late st Contact Info) Description 10/22/2022 Procedure Pass Echo Lab [address] [place] [address] Social History Tobacco Use Types Packs/Day Years [...] on filedocumented in this encounter Care Teams Presser Cotton Ginning Relationship Specialty Start Date End Date Catrachito Quiñones MD [address] [place] [address] [email or web address] PCP - General 03/13/17 Tay Parker MD [address] [place] [address], [facility] [address] [place] [address] [email or web address] Historical LMR Provider 12/29/16 Catrachito Quiñones MD [address] [place] [address] [email or web address] Historical LMR Provider 12/29/16 documented as of this encounter Additional Source Comments The information contained in this document represents components of the legal health record. It is not the complete legal health record.[facility]
--- OUTSIDE RECORDS SUMMARY | 2024-11-10 17:11 | XMS_ITS | Encounter Summary ---
Author Organization [facility] Address [address] [place] [address] Phone Care Team Providers Care Liquor Stores And Agencies Supervisor Name Role Phone Tay Parker MD Unavailable [phone] Catrachito Quiñones MD Unavailable [phone] Catrachito Quiñones MD Primary Care Provider [phone] Encounter Details Date Type Department Care Team (Late st Contact Info) Description 12/09/2023 Ancillary Orders [facility], X-Ray - [address] [place] [address] Regine Bergeron, DO [address] [place] [address] Right hip pain (Primary Dx) Social History [...] thigh documented in this encounter Care Teams Liquor Stores [employer] Agencies Supervisor Relationship Specialty Start Date End Date Catrachito Quiñones MD [address] [place] [address] PCP - General 03/13/17 Tay Parker MD [address] [place] [address], [address] [place] [address] [email or web address] Historical LMR Provider 12/29/16 Catrachito Quiñones MD [address] [place] [address] [email or web address] Historical LMR Provider 12/29/16 documented as of this encounter Additional Source Comments The information contained in this document represents components of the legal health record. It is not the complete legal health record.[facility]
--- OUTSIDE RECORDS SUMMARY | 2024-11-10 17:11 | XMS_ITS | Clinical Summary ---
Author Organization [facility] Address [address] [facility] [address] [place] [address] Phone Care Team Providers Care Diagnostic Radiologic Technologist Name Role Phone Tay Parker MD Unavailable [phone] Catrachito Quiñones MD Unavailable [phone] Catrachito Quiñones MD Primary Care Provider [phone] Allergies Active Allergy Reactions Criticality Noted Date [...] history exists SCREENING FOR DIABETES 02/17/2023 02/18/2020 BLOOD PRESSURE 12/26/2023 06/26/2023 INFLUENZA VACCINE (#1) 2024 9, 02/27/2010, 02/14/2009 COVID-19 VACCINE (2 - 2024- season) 2024 05/10/2020 HEPATITIS A VACCINES Aged Out 04/13/2001 No [...] SEE NARRATIVE - 11/25/2017 2:36 PM EDT [address] [address] Glass Maker: Robina Griffin MD CASING GRADER Cytology Report FINAL DIAGNOSIS A. PAP SMEAR [...] : 1970 (Age: 47) Sex: F Institution: [facility] Date of Collection: 11/18/2017 Date of Reported: 11/25/2017 14:36 Results to: Cristy Kaur PAC us Cristy Kaur PA CYTOLOGY ORDERABLES Final R esult SEE NARRATIVE from Last 3 Months or Most Recently Relevant to Health Maintenance [facility] Member Subscriber Plan / Payer (Ef fective 2017-Present) Name:Rakesh Cordero Relation to Subscriber:Spouse Name:VARUN CORDERO Date of :1900 (Home) Address: [address] [place] [address] Payer ID:Not on file Type:HMO Address: [place] [id number] Care Teams Diagnostic Radiologic Technologist Relationship Specialty Start Date End Date Catrachito Quiñones MD [address] [place] [address] [email or web address] PCP - General 03/13/17 Tay Parker MD [address] [facility] [address] [place] [address] [email or web address] Historical LMR Provider 12/29/16 Catrachito Quiñones MD [address] [place] [address] [email or web address] Historical LMR Provider 12/29/16 Additional Source Comments The information contained in this document represents components of the legal health record. It is not the complete legal health record.[facility]
--- OUTSIDE RECORDS SUMMARY | 2024-11-10 17:11 | XMS_ITS | Encounter Summary ---
Author Organization [facility] Address [address] [address] Phone Care Team Providers Care Digester Operator Name Role Phone Patricia Caldwell ELECTRICAL TIMING DEVICE CALIBRATOR Unavailable Sarah Gilliland CNM Unavailable Ashley Mijares CNM Unavailable [phone] Niurka Franks ELECTRICAL TIMING DEVICE CALIBRATOR Unavailable [phone] Sharon Wagner ELECTRICAL TIMING DEVICE CALIBRATOR Unavailable Hi Conde MD Unavailable Sydney Tai MD Unavailable Emma Richardson MD Unavailable [phone] Tay Parker MD Unavailable Ciaran Larios MD Unavailable Catrachito Quiñones MD Unavailable Mely Carlisle MD Unavailable Catrachito Disla MD Unavailable [phone] Catrachito Quiñones MD Primary Care Provider [phone] Reason for Referral * Physical Therapy (Routine) - Closed Specialty Diagnoses / Procedures Referred By Tisha patel Referred To Contact Physical Therapy Diagnoses Encounter for rehabilitation Tenzin Martins MD Phone: tel: fax: [email or web address]:[email or web address] [address] [address] Phone: tel: Referral ID Status Reason Start Date Expiration Date Visits Re quested Visits Authorized [id number] Closed 05/04/2019 03/09/2020 25 25 Encounter Details Date Type Department Care Team (Latest Contact Info) Description 05/04/2019 Transcribe Orders [facility] [address] [place] [address] Tenzin Martins MD [address] [place] [address] [email or web address] Encounter for rehabilitation (Primary Dx) [...] Date/Time Associated Diagnosis Comments AMB REFERRAL TO [facility] PHYSICAL THERAPY Routine 05/20/2019 1:06 PM EDT Encounter for rehabilitation documented in this encounter Results * Ambulatory referral to [facility] Physical Therapy (05/20/2019 1:06 PM EDT) us Tenzin Martins MD AMB [facility] REFERRALS Final Resu lt documented in this encounter Visit Diagnoses Diagnosis Encounter for rehabilitation- Primary documented in this encounter Care Teams Digester Operator Relationship Specialty Start Date End Date Catrachito Quiñones MD [address] [place] [address] PCP - General 03/13/17 Patricia Caldwell NP [address] [place] [address] Historical LMR Provider 12/29/16 2 Sarah Gilliland CNM [address] [place] [address] Historical LMR Provider 12/29/16 2 Ashley Mijares CNM [address] [place] [address] Historical LMR Provider 12/29/16 03/17/21 Niurka Franks ELECTRICAL TIMING DEVICE CALIBRATOR [address] [place] [address] Historical LMR Provider 12/29/16 03/17/21 Sharon Wagner ELECTRICAL TIMING DEVICE CALIBRATOR [address] [place] [phone] Historical LMR Provider 12/29/16 2 Hi Conde MD [address] [place] [address], [address] [place] [address] Historical LMR Provider 12/29/16 03/17/21 Sydney Tai MD [address] [place] [address] Historical LMR Provider 12/29/16 03/17/21 Emma Richardson MD [address] [place] [address] Historical LMR Provider 12/29/16 2 Tay Parker MD [address] [place] [address] Historical LMR Provider 12/29/16 Ciaran Larios MD [address] [place] [address] Historical LMR Provider 12/29/16 2 Catrachito Quiñones MD [address] [place] [address] Historical LMR Provider 12/29/16 Mely Carlisle MD [address] [place] [address] [facility], [place] [address] Historical LMR Provider 12/29/16 Catrachito Disla MD [address] [place] [address] Orthopedics Sports [facility], [place] [address] Historical LMR Provider 12/29/16 2 documented as of this encounter Additional Source Comments The information contained in this document represents components of the legal health record. It is not the complete legal health record.[facility]
--- OUTSIDE RECORDS SUMMARY | 2024-11-10 17:11 | XMS_ITS | Encounter Summary ---
Author Organization [facility] Address [address] [address] Phone Care Team Providers Care Vp Informatics Name Role Phone Patricia Caldwell DEVELOPMENT ARCHITECT Unavailable Sarah Gilliland CNM Unavailable Ashley Mijares CNM Unavailable [phone] Niurka Franks DEVELOPMENT ARCHITECT Unavailable [phone] Sharon Wagner DEVELOPMENT ARCHITECT Unavailable iH Conde MD Unavailable Sydney Tai MD Unavailable Emma Richardson MD Unavailable [phone] Tay Parker MD Unavailable Ciaran Larios MD Unavailable Catrachito Quiñones MD Unavailable Mely Carlisle MD Unavailable Catrachito Disla MD Unavailable Catrachito Quiñones MD Primary Care Provider [phone] Encounter Details Date Type Department Care Team (Latest Contact Info) Description 04/28/2018 Ancillary Orders Virtual Department 30 [place] [address] Catrachito Quiñones MD 31 [place] [address] [email or web address] Nonintractable headache, unspecified chronicity pattern, [...] type documented in this encounter Care Teams Vp Informatics Relationship Specialty Start Date End Date Catrachito Quiñones MD [address] [place] [address] PCP - General 03/13/17 Patricia Caldwell NP [address] [place] [address] Historical LMR Provider 12/29/16 2 Sarah Gilliland CNM [address] [place] [address] Historical LMR Provider 12/29/16 2 Ashley Mijares CNM [address] [place] [address] Historical LMR Provider 12/29/16 03/17/21 Niurka Franks, DEVELOPMENT ARCHITECT [address] [place] [address] Historical LMR Provider 12/29/16 03/17/21 Sharon Wagner DEVELOPMENT ARCHITECT [address] [place] [phone] Historical LMR Provider 12/29/16 2 Hi Conde MD [address] [place] [address], 2nd [place] [address] Historical LMR Provider 12/29/16 03/17/21 Sydney Tai MD [address] [place] [address] Historical LMR Provider 12/29/16 03/17/21 Emma Richardson MD [address] [place] [address] Historical LMR Provider 12/29/16 2 Tay Parker MD [address] [place] [address] Historical LMR Provider 12/29/16 Ciaran Larios MD [address] [place] [phone] Historical LMR Provider 12/29/16 2 Catrachito Quiñones MD [address] [place] [address] Historical LMR Provider 12/29/16 Mely Carlisle MD [address] [place] [address] Orthopedics & Sports Medicine, [facility] [place] [address] Historical LMR Provider 12/29/16 Catrachito Disla MD [address] [place] [address] Orthopedics & Sports Medicine, [facility] [place] [address] [email or web address] Historical LMR Provider 12/29/16 2 documented as of this encounter Additional Source Comments The information contained in this document represents components of the legal health record. It is not the complete legal health record.[facility]
--- OUTSIDE RECORDS SUMMARY | 2024-11-10 17:11 | XMS_ITS | Encounter Summary ---
Author Organization [facility] Address 399 [facility] [address] [place] [address] Phone Care Team Providers Care Guest Service Aide Name Role Phone Patricia Caldwell TOLL COLLECTOR Unavailable Sarah Gilliland CNM Unavailable Ashley Mijares CNM Unavailable [phone] Niurka Franks TOLL COLLECTOR Unavailable [phone] Sharon Wagner TOLL COLLECTOR Unavailable Hi Conde MD Unavailable Sydney Tai MD Unavailable Emma Richardson MD Unavailable [phone] Tay Parker MD Unavailable Ciaran Larios MD Unavailable Catrachito Quiñones MD Unavailable Mely Carlisle MD Unavailable Catrachito Disla MD Unavailable Catrachito Quiñones MD Primary Care Provider [phone] Encounter Details Date Type Department Care Team (Late st Contact Info) Description 09/21/2019 Transcribe Orders [facility] 29 [place] [address] Catrachito Quiñones MD 31 [place] [address] Social History Tobacco Use Types Packs/Day Years [...] on filedocumented in this encounter Care Teams Guest Service Aide Relationship Specialty Start Date End Date Catrachito Quiñones MD [address] [place] [address] PCP - General 03/13/17 Patricia Caldwell NP [address] [place] [address] Historical LMR Provider 12/29/16 2 Sarah Gilliland CNM [address] [place] [address] Historical LMR Provider 12/29/16 2 Ashley Mijares CNM [address] [place] [address] Historical LMR Provider 12/29/16 03/17/21 Niurka Franks TOLL COLLECTOR 30 [place] [address] Historical LMR Provider 12/29/16 03/17/21 Sharon Wagner TOLL COLLECTOR [address] [place] [phone] Historical LMR Provider 12/29/16 2 Hi Conde MD [address] [place] [address], 2nd [place] [address] Historical LMR Provider 12/29/16 03/17/21 Sydney Tai MD [address] [place] [address] Historical LMR Provider 12/29/16 03/17/21 Emma Richardson MD [address] [place] [address] Historical LMR Provider 12/29/16 2 Tay Parker MD [address] [place] [address] Historical LMR Provider 12/29/16 Ciaran Larios MD [address] [place] [phone] Historical LMR Provider 12/29/16 2 Catrachito Quiñones MD [address] [place] [address] Historical LMR Provider 12/29/16 Mely Carlisle MD [address] [place] [address] Orthopedics & Sports Medicine, [facility] [place] [address] Historical LMR Provider 12/29/16 Catrachito Disla MD [address] [place] [address] Orthopedics & Sports Medicine, [facility] [place] [address] [email or web address] Historical LMR Provider 12/29/16 2 documented as of this encounter Additional Source Comments The information contained in this document represents components of the legal health record. It is not the complete legal health record.[facility]
--- OUTSIDE RECORDS SUMMARY | 2024-11-10 17:11 | XMS_ITS | Encounter Summary ---
Author Organization [facility] Address 399 [facility] [address] [place] [address] Phone Care Team Providers Care Legal Administrative Secretary Name Role Phone Patricia Caldwell COUNTY TREASURER Unavailable Sarah Gilliland CNM Unavailable Ashley Mijares CNM Unavailable [phone] Niurka Franks COUNTY TREASURER Unavailable [phone] Sharon Wagner COUNTY TREASURER Unavailable Hi Conde MD Unavailable Sydney Tai MD Unavailable Emma Richardson MD Unavailable [phone] Tay Parker MD Unavailable Ciaran Larios MD Unavailable Catrachito Quiñones MD Unavailable Mely Carlisle MD Unavailable Catrachito Disla MD Unavailable Catrachito Quiñones MD Primary Care Provider [phone] Encounter Details Date Type Department Care Team (Late st Contact Info) Description 05/14/2019 Ancillary Orders [facility],Outside Imaging 30 [place] [address] System, Provider Not In, [facility] [address] [address] Social History Tobacco Use Types Packs/Day Years [...] on filedocumented in this encounter Care Teams Legal Administrative Secretary Relationship Specialty Start Date End Date Catrachito Quiñones MD [address] [place] [address] PCP - General 03/13/17 Patricia Caldwell, COUNTY TREASURER [address] [place] [address] Historical LMR Provider 12/29/16 2 Sarah Gilliland CNM [address] [place] [address] Historical LMR Provider 12/29/16 2 Ashley Mijares CNM [address] [place] [address] Historical LMR Provider 12/29/16 03/17/21 Niurka Franks, COUNTY TREASURER [address] [place] [address] Historical LMR Provider 12/29/16 03/17/21 Sharon Wagner, COUNTY TREASURER [address] [place] [address] [place] [address] Historical LMR Provider 12/29/16 2 Hi Conde MD [address] [place] [address], 2[address] [place] [address] Historical LMR Provider 12/29/16 03/17/21 Sydney Tai MD [address] [place] [address] Historical LMR Provider 12/29/16 03/17/21 Emma Richardson MD [address], [place] [address] Historical LMR Provider 12/29/16 2 Tay Parker MD [address] [place] [address] Historical LMR Provider 12/29/16 Ciaran Larios MD [address] [place] [phone] Historical LMR Provider 12/29/16 2 Catrachito Quiñones MD [address] [place] [address] Historical LMR Provider 12/29/16 Mely Carlisle MD [address] [place] [address] Orth[facility] Sports Medicine, [place] [address] Historical LMR Provider 12/29/16 Catrachito Disla MD [address] [place] [address] Orthoped[facility] Sports Medicine, [place] [address] Historical LMR Provider 12/29/16 2 documented as of this encounter Additional Source Comments The information contained in this document represents components of the legal health record. It is not the complete legal health record.[facility]
--- OUTSIDE RECORDS SUMMARY | 2024-11-10 17:11 | XMS_ITS | Encounter Summary ---
Author Organization [facility] Address 399 [facility] [address] [place] [address] Phone Care Team Providers Care Charter Driver Name Role Phone Patricia Caldwell MEDICAL INSURANCE CODER Unavailable Sarah Gilliland CNM Unavailable Ashley Mijares CNM Unavailable [phone] Niurka Franks MEDICAL INSURANCE CODER Unavailable [phone] Sharon Wagner MEDICAL INSURANCE CODER Unavailable Hi Conde MD Unavailable Sydney Tai MD Unavailable Emma Richardson MD Unavailable [phone] Tay Parker MD Unavailable Ciaran Larios MD Unavailable Catrachito Quiñones MD Unavailable Mely Carlisle MD Unavailable Catrachito Disla MD Unavailable Catrachito Quiñones MD Primary Care Provider [phone] Reason for Referral * Physical Therapy (Routine) - Closed Specialty Diagnoses / Procedures Referred By Tisha patel Referred To Contact Physical Therapy Diagnoses Encounter for rehabilitation Catrachito Quiñones MD Phone: tel: fax: [email or web address] [facility] [address] [place] [address] Phone: tel: fax: Referral ID Status Reason Start Date Expiration Date Visits Re quested Visits Authorized [id number] Closed 09/23/2017 01/07/2018 13 13 Encounter Details Date Type Department Care Team (Latest Contact Info) Description 09/09/2017 Transcribe Orders [facility] [address] [place] [address] Catrachito Quiñones MD [address] [place] [address] [email or web address] Encounter for rehabilitation (Primary Dx) [...] Diagnoses Orde r Schedule Ambulatory referral to [facility] Physical Therapy Outpatient Referral Routine Encounter for rehabilitation Ordered: 09/09/2017 documented as of this encounter Visit Diagnoses Diagnosis Encounter for rehabilitation- Primary documented in this encounter Care Teams Charter Driver Relationship Specialty Start Date End Date Catrachito Quiñones MD [address] [place] [address] PCP - General 03/13/17 Patricia Caldwell NP [address] [place] [address] Historical LMR Provider 12/29/16 2 Sarah Gilliland CNM [address] [place] [address] Historical LMR Provider 12/29/16 2 Ashley Mijares CNM [address] [place] [address] Historical LMR Provider 12/29/16 03/17/21 Niurka Franks NP [address] [place] [address] [email or web address] Historical LMR Provider 12/29/16 03/17/21 Sharon Wagner NP [address] [place] [phone] Historical LMR Provider 12/29/16 2 Hi Conde MD [address] [place] [address], [address] [place] [address] Historical LMR Provider 12/29/16 03/17/21 Sydney Tai MD [address] [place] [address] Historical LMR Provider 12/29/16 03/17/21 Emma Richardson MD [address] [place] [address] Historical LMR Provider 12/29/16 2 Tay Parker MD [address] [place] [address] Historical LMR Provider 12/29/16 Ciaran Larios MD [address] [place] [address] Historical LMR Provider 12/29/16 2 Catrachito Quiñones MD [address] [place] [address] Historical LMR Provider 12/29/16 Mely Carlisle MD [address] [place] [address] Orthopedics & Sports [facility], [place] [address] Historical LMR Provider 12/29/16 Catrachito Disla MD [address] [place] [address] [facility] [place] [address] Historical LMR Provider 12/29/16 2 documented as of this encounter Additional Source Comments The information contained in this document represents components of the legal health record. It is not the complete legal health record.[facility]
--- OUTSIDE RECORDS SUMMARY | 2024-11-10 17:11 | XMS_ITS | Encounter Summary ---
Author Organization [facility] Address [address] [address] Phone Care Team Providers Care Media Account Executive Name Role Phone Patricia Caldwell ETL ANALYST Unavailable Sarah Gilliland CNM Unavailable Ashley Mijares CNM Unavailable [phone] Niurka Franks ETL ANALYST Unavailable [phone] Sharon Wagner ETL ANALYST Unavailable Hi Conde MD Unavailable Sydney Tai MD Unavailable Emma Richardson MD Unavailable [phone] Tay Parker MD Unavailable Ciaran Larios MD Unavailable Catrachito Quiñones MD Unavailable Mely Carlisle MD Unavailable Catrachito Disla MD Unavailable Catrachito Quiñones MD Primary Care Provider [phone] Encounter Details Date Type Department Care Team (Latest Contact Info) Description 05/31/2019 Transcribe Orders Virtual Department 30 [place], [place] [phone] Catrachito Quiñones MD 31 [place] [address] [email or web address] Oth abn and inconclusive findings [...] same day diagnostic mammogram report. POS - [id number] Procedure Note Wayne Ackerman MD - 06/01/2019 Refer to the same day diagnostic mammogram report. POS - [id number] Catrachito Quiñones MD [facility] [place] BREAST Final Resu lt * BI [...] breast documented in this encounter Care Teams Media Account Executive Relationship Specialty Start Date End Date Catrachito Quiñones MD [address] [place] [address] PCP - General 03/13/17 Patricia Caldwell NP [address] [place] [address] Historical LMR Provider 12/29/16 2 Sarah Gilliland CNM [address] [place] [address] Historical LMR Provider 12/29/16 2 Ashley Mijares CNM [address] [place] [address] Historical LMR Provider 12/29/16 03/17/21 Niurka Franks ETL ANALYST [address] [place] [address] [email or web address] Historical LMR Provider 12/29/16 03/17/21 Sharon Wagner ETL ANALYST [address] [place] [phone] Historical LMR Provider 12/29/16 2 Hi Conde MD [address] [place] [address], [address] [place] [address] Historical LMR Provider 12/29/16 03/17/21 Sydney Tai MD [address] [place] [address] Historical LMR Provider 12/29/16 03/17/21 Emma Richardson MD [address] [place] [address] Historical LMR Provider 12/29/16 2 Tay Parker MD [facility], [address] [place] [address] Historical LMR Provider 12/29/16 Ciaran Larios MD [address] [place] [address] Historical LMR Provider 12/29/16 2 Catrachito Quiñones MD [address] [place] [address] Historical LMR Provider 12/29/16 Mely Carlisle MD [address] [place] [address] Orthopedics & Sports Medicine, [place] [address] Historical LMR Provider 12/29/16 Catrachito Disla MD [address] [place] [address] Orthopedics & Sports [facility], [place] [address] Historical LMR Provider 12/29/16 2 documented as of this encounter Additional Source Comments The information contained in this document represents components of the legal health record. It is not the complete legal health record.[facility]
== END 2024-11-10 16:26 | disposition home or self-care (01) ==
LOC: HO.HNS 15:03
PROVIDERS: PCP Internal Medicine; Visit Provider Neurological Surgery
DX: M46.1 Sacroiliitis, not elsewhere classified (principal)
CPT/HCPCS: 99214

== ENCOUNTER 2025-02-17 09:09 | Day surgery (SDC) | payer OTHER, SELFPAY ==
[2025-02-08 10:25] VITALS: BMI 36.0
[2025-02-15 12:42] VITALS: BMI 37.1
[2025-02-15 15:38] VITALS: BMI 37.8
--- NOTE | 2025-02-15 16:19 | P.DS_ITS ---
DS: Providers Provider Date of Service: 02/17/25 Date of discharge: 02/17/25 Primary care physician: Catrachito Quiñones MD Admitting clinician: Selwyn Parikh DS: Diagnosis Discharge Diagnosis (1) Bilateral sacroiliitis: Status: Acute DS: Summary Time Attestation Discharge Coordination Time (in mins): 6 Quality: Safe Use of Opioids Does Pt have an Active Cancer Diagnosis on the Problem List?: No Quality: Stroke Does the patient have a stroke diagnosis?: No Physical Exam Vital Signs: Vital Signs: BMI result Body Mass Index 37.8 Discharge Plan Discharge Patient Disposition: Home, Self-Care Referrals: Catrachito Quiñones MD [Primary Care Provider, Family Practice] - 1 Week Discharge Medications: New docusate sodium [Colace] 100 mg capsule 100 mg PO BID Qty: 20 0RF oxycodone 5 mg tablet 5 mg PO Q4H PRN (Reason: pain) Qty: 20 0RF Rx Instructions: Partial Fill upon patient request. Continued atorvastatin 40 mg tablet 40 mg PO DAILY amitriptyline 25 mg tablet 50 mg PO BEDTIME omeprazole 40 mg Capsule,Delayed Release(Dr/Ec) 40 mg PO DAILY PRN (Reason: Acid Reflux) Discharge Orders: Discharge Order (Routine); Ordered 02/17/25 Ordered By: Aaron Roberts Diet: Advance to usual diet Activity on Discharge: As tolerated Activity Restrictions/Additional Instructions: After your SI joint fusion surgery we ask you to observe the following restrictions/guidelines: Activity: It is normal to feel some discomfort as you increase your activity, but that will improve with time. We ask you avoid heavy lifting or acitivities that cause pain. As a general rule, 8lbs is a safe limit for lifting right after surgery. We ask you to stay off your right leg after surgery in order to help the SI joint fuse. Please use crutches or walker. You may return to driving when you are off narcotics (such as vicodin, oxycodone, dilaudid, etc), and you are back to normal functional capacity. If you have any concerns please check with office before driving. Return to work is specific to each patient and each surgery, so please speak with your doctor/PA at first follow up. Please bring paperwork such as FMLA at that time if you need it filled out. Follow up: Please call the office, , after surgery to arrange a 3 week follow up for wound check. Wound Care: Your wound was closed with glue, there are no sutures to remove. You may shower on post op day # 1. We ask that you do not let the water soak the wound. If it does get wet, just towel dry lightly. Please do not scrub your incision or place any type of chemical/ointment on the wound. No tub baths, pools or jacuzzis for one month. If you have any leaking or redness from your wound, or fevers, please call office Medications: We will give you a short supply of narcotics after surgery (usually one weeks worth). If you need more please call the office but do not use more than prescribed. You will need to give our office 48 hours notice if you need narcotics refilled and we do not fill narcotics on weekends or evenings. If you are on a narcotic, it is a good idea to take a stool softener such as colace or senna to avoid constipation If you take blood thinner such as aspirin, Plavix, Coumadin, Effient, Eliquis etc for conditions such as Afib, DVT, Pulmonary embolus, coronary disease, stents etc please speak with your surgeon about specific details as to when you can resume these medications. You can resume NSAIDs on post op day 1 (eg: Motrin, Naproxen, etc). Print Language: Citizen Of [place]
[2025-02-17] VITALS (8 sets, daily range): BP systolic 92–112; BP diastolic 45–74; PULSE 67–83; RESP 10–18; TEMP 36.1–36.2; O2SAT 95–100; BMI 37.9
--- NOTE | ~2025-02-17 | FL_ITS ---
EXAMINATION: FL GUIDANCE ONLY HISTORY: SI joint fusion, Right COMPARISON: None available. TECHNIQUE: Fluoroscopy time: 50 seconds. Cumulative Dose: 24.60 mGy. DAP: 919.20 uGym2 Images: 4. FINDINGS: Fluoroscopic spot films of the right hemipelvis demonstrate a probe and drill in the region of the sacroiliac joint. FL/FL guidance in OR IMPRESSION: Fluoroscopy during procedure. Please see procedure report for additional information. Electronically signed by: Catrachito Wallace MD 02/17/2025 11:48 AM GREG
--- NOTE | 2025-02-17 08:59 | MHC.SHP ---
Pre-Procedural Eval Section A - 24 Hr Update-Section A only Date of Service: 02/17/25 The patient is an INPATIENT: No Section B - Complete if H&P > 30 days Chief Complaint: Sacroiliitis, not elsewhere classified Details of Present Illness: Right SI joint. Allergies: Allergies Allergy/AdvReac Type Severity Reaction Status Date / Time latex Allergy burning Verified 02/15/25 12:43 and itching Penicillins Allergy Unknown Verified 02/15/25 15:37 Review of Systems Sugical H&P ROS: Negative: Constitution, Cardiovascular, Respiratory, Neurological, Psychiatric, Hem-Onc, Allergic/Immunologic, Gastrointestinal, Genitourinary, Musculoskeletal, Integumentary, Endocrine and Eyes/Ears/Nose/Throat Exam Surgical H&P Exam: Normal: HEENT, Normal: Heart, Normal: Lungs, Normal: Extremities, Normal: Abdomen, Normal: Skin and Normal: Neurological (Awake, alert) Plan Diagnosis/Plan: Unchanged I have reviewed the history and physical and performed a pertinent physical examination on my patient. No changes have occurred unless specified. Right SI joint fusion Time Spent With Patient Time: Total time managing care of this patient today ___5_ minutes.
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
[2025-02-17] MEDS: Lactated Ringers 1,000 ML 100 ML IVCONT (09:55)
--- NOTE | 2025-02-17 11:00 | W.PM.OPN ---
Operative Note Operative Note Date of Service: 02/17/25 Narrative: Preoperative diagnosis: Right Sacroiliitis Postoperative diagnosis: Same Operative procedure: Arthrodesis, sacral iliac joint, minimally invasive with image guidance, including obtaining bone graft, unilateral; placement of transarticular device piercing the medial cortices of the ilium lateral cortex of the sacrum Surgeon: Selwyn Parikh MD, PhD Production Packager: Aaron Roberts PA-C Anesthesia: General Description of procedure: The patient is suffering from right SI joint dysfunction refractory to nonoperative management. The patient has tried and failed all forms of conservative manage med except for an excellent short-term response to a sacroiliac joint injection. The sacroiliac joint was confirmed to be the pain generator after repeated pain blocks. The patient was offered surgical treatment with fixation and arthrodesis of the SI joint. The patient was brought to the operating room and endotracheally intubated. The patient was turned in a prone position on Juan Jose spine table. Prepping and draping was done followed by a time-out. A C-arm was alternately positioned for lateral, oblique oblique and pelvic inlet and outlet projections througout the procedure. Skin markings were made for the anticipated position of the implant. A 2.5 cm longitudinal skin incision was made. A guide pin was inserted in an inlet oblique image for guidance follow-up insertion of dilator and working cannula. This was secured by placing an anchor pin into the ilium. Consideration was taken to cut channels utilizing a series of drills for decortication and internal fixation device placement. The implant was inserted such that it passed through the ilium from medial to lateral, across the sacroiliac joint and into the lateral part of sacrum, thus transfixing the sacroiliac joint. Proper positioning was confirmed on inlet oblique image and lateral fluoroscopy. The implant was packed with autologous bone collected from remain of the sacrum and ilium. Additional graft material was inserted into the channel void following the implant. The instruments were withdrawn. Upon completion, final images were obtained that showed a satisfactory position of the implant. Hemostasis was done. The incision was closed with an 0 Vicryl to fashion a 3-0 Vicryl subdermal layer after injecting Marcaine. Dermabond was used to approximate the surgeon. All sponge and needle counts were correct. Patient was extubated and transported in a stable condition to recovery room. Estimated blood loss: 15 Operative time: 25 minutes Complications: None Disposition: Discharge to home
== END 2025-02-17 13:30 | disposition home or self-care (01) ==
LOC: HO.SSS 09:09
PROVIDERS: PCP Internal Medicine; Visit Provider Neurological Surgery
PROC: (CPT 27279; principal; 2025-02-17 09:10)
DX: M46.1 Sacroiliitis, not elsewhere classified (principal); M53.3 Sacrococcygeal disorders, not elsewhere classified; M54.50 Low back pain, unspecified; M35.7 Hypermobility syndrome; G43.909 Migraine, unspecified, not intractable, without status migrainosus; E78.00 Pure hypercholesterolemia, unspecified; R12 Heartburn; Z79.899 Other long term (current) drug therapy; Z88.0 Allergy status to penicillin; Z91.040 Latex allergy status
CPT/HCPCS: 27279; C1713; J0131; J0690; J1100; J1885; J2003; J2250; J2371; J2405; J2704; J3010; L8699

== ENCOUNTER → 2025-02-17 09:09 | Outpatient (BNV) | payer OTHER, SELFPAY | PROVIDERS: PCP Internal Medicine; Visit Provider Physician Assistant | DX: M46.1 Sacroiliitis, not elsewhere classified (principal) | CPT/HCPCS: 27279; 99499 ==